=== PATIENT | female | born 1950 | race Two or more races ===

== ENCOUNTER 2019-07-19 19:24 | Emergency (ER) | payer MEDICARE, MEDICAID ==
[~2019-07-19] VITALS: Ht 170.2 cm; Wt 77.1 kg
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
[2019-07-19 19:52] VITALS: BP 133/79
--- NOTE | 2019-07-19 19:56 | NUR ---
LOGGER DRIVING HORSES AT BED FOR XRAY PROCEDURE.
== END 2019-07-19 22:22 | disposition home or self-care (01) ==
LOC: ER 19:26
DX: S70.01XA Contusion of right hip, initial encounter (principal); S40.011A Contusion of right shoulder, initial encounter; W18.09XA Striking against other object with subsequent fall, initial encounter; Y93.89 Activity, other specified; Y92.89 Other specified places as the place of occurrence of the external cause; Y99.8 Other external cause status
CPT/HCPCS: 73030-TC; 73502